=== PATIENT | male | born 1960 | race Caucasian/White ===

== ENCOUNTER 2016-08-27 02:09 | Emergency (ER) | payer BC, OTHER ==
[2016-08-27] MEDS ORDERED: CEFTRIAXONE 1 GRAM VIAL IM ONE (02:32)
[2016-08-27] MEDS ORDERED: METHYLPREDNISOLONE PF 125MG/VIAL IM ONE (02:32)
[2016-08-27] MEDS ORDERED: AZITHROMYCIN 500 MG TABLET PO ONE (02:33)
--- NOTE | 2016-08-27 02:38 | Emergency Department Record ---
History of Present Illness - General Chief Complaint: Cough Stated Complaint: COUGH Time Seen by Provider: 08/27/16 02:17 Source: Patient Mode of Arrival: Ambulatory - History of Present Illness Initial Comments: The patient states that he has been sick since . His last round (second round) of antibiotics was in the first week of August. They helped but he got worse as soon as he quit taking them (a 5 day zpack). Now he has been having lots of post nasal drip down the back of his throat, dryness in his nasal passages, spasms of coughing episodes which he can't stop. Tonight he coughed some blood during one of these spasms which scared him. He states his left cheek has painful pressure, and his post nasal drip is keeping him from sleeping. He also notes his left ear is painful. Onset/Timin Severity scale (1-10): 8 Consistency: Constant - Related Data Home Medications Medication Instructions Recorded Confirmed Last Taken Olmesartan/Hydrochlorothiazide 1 tab PO QD tab 03/30/15 08/27/16 Unknown [Benicar Hct 20-12.5 Mg Tablet] Previous Rx's Medication Instructions Recorded Azithromycin [Zithromax] 500 mg PO DAILY #10 tab 08/27/16 Promethazine HCl/Codeine 5 - 10 ml PO .AT BEDTIME PRN #118 08/27/16 [Phenergan W/Codeine] ml Allergies Allergy/AdvReac Type Severity Reaction Status Date / Time No Known Drug Allergies Allergy Unverified 11/08/15 16:37 Travel Screening - Travel/Exposure Within Last 30 Days Have you traveled within the last 30 days?: No Review of Systems Reviewed: No additional complaints except as noted below Constitutional: Reports: As per HPI. Denies: Chills, Fever, Malaise, Night sweats, Weakness, Weight change Eyes: Reports: As per HPI. Denies: Eye discharge, Eye pain, Photophobia, Vision change ENT: Reports: As per HPI. Denies: Congestion, Dental pain, Ear pain, Epistaxis , Hearing loss, Throat pain Respiratory: Reports: As per HPI. Denies: Cough, Dyspnea, Hemoptysis, Stridor, Wheezes Cardiovascular: Reports: As per HPI. Denies: Arrhythmia, Chest pain, Dyspnea on exertion, Edema, Murmurs, Orthopnea, Palpitations, Paroxysmal nocturnal dyspnea, Rheumatic Fever, Syncope Endocrine: Reports: As per HPI. Denies: Fatigue, Heat or cold intolerance, Polydipsia, Polyuria Gastrointestinal: Reports: As per HPI. Denies: Abdominal pain, Constipation, Diarrhea, Hematemesis, Hematochezia, Melena, Nausea, Vomiting Genitourinary: Reports: As per HPI. Denies: Dysuria, Frequency, Hematuria, Incontinence, Retention, Testicular pain, Testicular mass, Urgency Musculoskeletal: Reports: As per HPI. Denies: Arthralgia, Back pain, Gout, Joint swelling, Myalgia, Neck pain Skin: Reports: As per HPI. Denies: Bruising, Change in color, Change in hair/ nails, Lesions, Pruritus, Rash Neurological: Reports: As per HPI. Denies: Abnormal gait, Confusion, Headache, Numbness, Paresthesias, Seizure, Tingling, Tremors, Vertigo, Weakness Psychiatric: Reports: As per HPI. Denies: Anxiety, Auditory hallucinations, Depression, Homicidal thoughts, Suicidal thoughts, Visual hallucinations Hematological/Lymphatic: Reports: As per HPI. Denies: Anemia, Blood Clots, Easy bleeding, Easy bruising, Swollen glands Past Medical History - SOCIAL HISTORY Smoking Status: Current every day smoker Alcohol Use: None Drug Use: None - RESPIRATORY Hx Respiratory Disorders: No - CARDIOVASCULAR Hx Cardio Disorders: Yes Hx Hypertension: Yes - NEURO Hx Neuro Disorders: No - GI Hx GI Disorders: No - Hx Genitourinary Disorders: No - ENDOCRINE Hx Endocrine Disorders: No - MUSCULOSKELETAL Hx Musculoskeletal Disorders: No - PSYCH Hx Psych Problems: No - HEMATOLOGY/ONCOLOGY Hx Hematology/Oncology Disorders: No Family Medical History Any Significant Family History?: Yes Hx HTN: Father, Mother Physical Exam - General General Appearance: Alert, Oriented x3, Cooperative, No acute distress - Head Head exam: Normal inspection - Eye Eye exam: Normal appearance, PERRL Pupils: Normal accommodation - ENT ENT exam: Normal exam, Mucous membranes moist, Normal external ear exam, Normal orophraynx, Other (Left TM erythematous and bulging) Ear exam: Normal external inspection. negative: External canal tenderness Nasal Exam: Normal inspection, Dried blood, Sinus tenderness (left maxillary sinus tender on mild palpation). negative: Active bleeding, Discharge, Foreign body Mouth exam: Normal external inspection, Tongue normal Teeth exam: Normal inspection. negative: Dental caries Throat exam: Normal inspection. negative: Tonsillar erythema, Tonsillar exudate - Neck Neck exam: Normal inspection, Full ROM. negative: Lymphadenopathy, Meningismus , Tenderness - Respiratory Respiratory exam: Normal lung sounds bilaterally. negative: Respiratory distress - Cardiovascular Cardiovascular Exam: Regular rate, Normal rhythm, Normal heart sounds - GI/Abdominal GI/Abdominal exam: Soft, Normal bowel sounds. negative: Tenderness - Rectal Rectal exam: Deferred - exam: Deferred - Extremities Extremities exam: Normal inspection, Full ROM, Normal capillary refill. negative: Calf tenderness, Pedal edema, Tenderness - Back Back exam: Reports: Normal inspection, Full ROM. Denies: Muscle spasm, Rash noted, Tenderness - Neurological Neurological exam: Alert, Normal gait, Oriented X3, Reflexes normal - Psychiatric Psychiatric exam: Normal affect, Normal mood - Skin Skin exam: Dry, Intact, Normal color, Warm Course Vital Signs 08/27/16 02:14 Temperature 97.8 F Pulse Rate [ 92 H Pulse Ox Probe] Respiratory 16 Rate Blood Pressure 144/100 [Left Arm] Pulse Ox 98 Disposition Disposition: Discharge Clinical Impression: Sinusitis, acute Qualifiers: Sinusitis location: maxillary Recurrence: not specified as recurrent Qualified Code(s): J01.00 - Acute maxillary sinusitis, unspecified Otitis media, left Qualifiers: Otitis media type: suppurative Chronicity: acute Recurrence: not specified as recurrent Spontaneous tympanic membrane rupture: without spontaneous rupture Qualified Code(s): H66.002 - Acute suppurative otitis media without spontaneous rupture of ear drum, left ear Disposition: Home, Self-Care Condition: (1) Good Instructions: Sinusitis (ED), Otitis Media (ED) Additional Instructions: Take antibiotics until gone with the one refill un-interupted until gone. Get a bedside vaporizer and use it to moisten your airway. Phenergan with codeine at bedtime only to help suppress cough and help with sleep. Discontinue smoking completely and permanently. Follow up with PCP without fail to assure resolution of symptoms, and consider CXR if not improved. Prescriptions: Azithromycin [Zithromax] 500 mg PO DAILY #10 tab Promethazine HCl/Codeine [Phenergan W/Codeine] 5 - 10 ml PO .AT BEDTIME PRN # 118 ml PRN Reason: Cough Forms: Patient Portal Access
[2016-08-27] MEDS ORDERED: PROMETHAZINE W/CODEINE 10ML UD PO ONE ×2 (02:41→02:44)
== END 2016-08-27 02:59 | disposition home or self-care (01) ==
LOC: ER 02:09
DX: H66.002 Acute suppurative otitis media without spontaneous rupture of ear drum, left ear (principal); J01.00 Acute maxillary sinusitis, unspecified
CPT/HCPCS: 96372; 99283; J2930